=== PATIENT | female | born 1975 | race Caucasian/White ===

== ENCOUNTER 2020-05-04 12:22 | Day surgery (SDC) | payer OTHER ==
[2020-05-01 12:02] VITALS: BMI 36.0
[2020-05-04] MEDS ORDERED: ONDANSETRON 4 MG/2 ML VIAL ONE (15:47)
[2020-05-04 16:06] VITALS: TEMP 97.8
[2020-05-04 16:27] VITALS: BP 116/74; PULSE 74
== END 2020-05-04 16:34 | disposition home or self-care (01) ==
LOC: FASU-ENDO 12:22
PROVIDERS: ATTEND Internal Medicine Gastroenterology
PROC: 0DB78ZX Excision of Stomach, Pylorus, Via Natural or Artificial Opening Endoscopic, Diagnostic (ICD-10-PCS; 2020-05-04)
PROC: 0DB48ZX Excision of Esophagogastric Junction, Via Natural or Artificial Opening Endoscopic, Diagnostic (ICD-10-PCS; 2020-05-04)
PROC: 0DB98ZX Excision of Duodenum, Via Natural or Artificial Opening Endoscopic, Diagnostic (ICD-10-PCS; principal; 2020-05-04 15:35)
DX: K29.50 Unspecified chronic gastritis without bleeding (principal); K22.8 Other specified diseases of esophagus; K31.89 Other diseases of stomach and duodenum
CPT/HCPCS: 84703; 88305-TC; 88342-TC

== ENCOUNTER 2020-06-01 04:20 | Day surgery (SDC) | payer OTHER ==
[2020-05-31 12:48] VITALS: BMI 34.2
[2020-06-01] MEDS ORDERED: BUPIVACAINE HCL 100 ML ONE (08:40)
[2020-06-01] MEDS ORDERED: LIDOCAINE HCL/PF 2% SDV 5ML VIAL ONE (09:38)
[2020-06-01] MEDS ORDERED: PROPOFOL 20 ML ONE (09:39)
[2020-06-01] MEDS ORDERED: MIDAZOLAM HCL 2 MG/2 ML SINGLE DOSE VIAL ONE (09:39)
[2020-06-01] MEDS ORDERED: SUCCINYLCHOLINE CHLORIDE 200 MG/10 ML SYRINGE ONE (09:39)
[2020-06-01] MEDS ORDERED: ROCURONIUM BROMIDE 50 MG/5 ML SYRINGE ONE (09:39)
[2020-06-01] MEDS ORDERED: NEOSTIGMINE METHYLSULFATE 0.5 MG/ML - 10 ML MDV ONE (10:58)
[2020-06-01] MEDS ORDERED: GLYCOPYRROLATE 0.2 MG/1 ML VIAL ONE ×2 (10:58)
[2020-06-01] MEDS ORDERED: BUPIVACAINE HCL/PF 0.5% (5MG/ML) 10 ML VIAL IJ ONE (11:05)
[2020-06-01] MEDS ORDERED: ONDANSETRON 4 MG/2 ML VIAL IVPUSH PRN (11:14)
[2020-06-01] MEDS ORDERED: PROMETHAZINE HCL 25 MG/1 ML VIAL IVPUSH PRN (11:14)
[2020-06-01] MEDS ORDERED: oxyCODONE HCL 5 MG TABLET PO PRN (11:14)
[2020-06-01] MEDS ORDERED: ACETAMINOPHEN 1000 MG/100 ML VIAL (NON FORMULARY) IVPB ONE ×2 (12:55→12:57)
[2020-06-01] MEDS ORDERED: ACETAMINOPHEN INJECTION 100 ML IVPB ONE (12:57)
[2020-06-01 14:23] VITALS: BP 131/80; PULSE 71; TEMP 97.3
== END 2020-06-01 14:00 | disposition home or self-care (01) ==
LOC: JASU-SURG 04:20
PROVIDERS: ATTEND Family Medicine
PROC: 0U574ZZ Destruction of Bilateral Fallopian Tubes, Percutaneous Endoscopic Approach (ICD-10-PCS; principal; 2020-06-01 09:30)
DX: Z30.2 Encounter for sterilization (principal)
CPT/HCPCS: 86850; 86900; 86901; 94760; J0131

== ENCOUNTER 2020-08-01 18:42 | Emergency (ER) | payer OTHER ==
[2020-08-01 19:08] VITALS: TEMP 99.6; BMI 41.5
[2020-08-01] MEDS ORDERED: KETOROLAC TROMETHAMINE 30 MG/1 ML VIAL IVPUSH ONE (19:41)
[2020-08-01] MEDS ORDERED: SODIUM CHLORIDE 0.9% 500 ML INFUS.BAG IV ONE (19:41)
[2020-08-01] MEDS ORDERED: KETOROLAC TROMETHAMINE 30 MG/1 ML VIAL ONE (19:43)
[2020-08-01 21:26] VITALS: BP 128/86; PULSE 70
== END 2020-08-01 21:37 | disposition home or self-care (01) ==
LOC: JER 18:42
PROC: 3E033GC Introduction of Other Therapeutic Substance into Peripheral Vein, Percutaneous Approach (ICD-10-PCS; principal; 2020-08-01)
PROC: 3E0333Z Introduction of Anti-inflammatory into Peripheral Vein, Percutaneous Approach (ICD-10-PCS; 2020-08-01)
DX: G44.209 Tension-type headache, unspecified, not intractable (principal)
CPT/HCPCS: 99284-25